=== PATIENT | male | born 1955 | race Caucasian/White ===

== ENCOUNTER → 2022-05-26 14:30 | Outpatient (CLI) | payer MEDICARE, OTHER, SELFPAY ==
[2022-05-26 17:59] LABS: Influenza A - CEPHEID Flu A NEGATIVE (NEGATIVE); Influenza B - CEPHEID Flu B NEGATIVE (NEGATIVE); Respiratory Syncytial Virus Negative (Negative)
[2022-05-26 18:02] LABS: COVID-19 CEPHEID 4-PLEX PCR Negative (Negative)
== END ==
PROVIDERS: Visit Provider Registered Nurse
DX: R05.1 Acute cough (principal); Z20.822 Contact with and (suspected) exposure to COVID-19
CPT/HCPCS: 0241U

== ENCOUNTER → 2023-06-07 14:48 | Outpatient (CLI) | payer MEDICARE, SELFPAY ==
[2023-06-07 20:27] LABS: Influenza A - CEPHEID Flu A NEGATIVE (NEGATIVE); Influenza B - CEPHEID Flu B NEGATIVE (NEGATIVE); Respiratory Syncytial Virus Negative (Negative)
[2023-06-07 20:28] LABS: Creatinine Urine Random 100.4 mg/dL
[2023-06-07 20:36] LABS: Microalbumin Urine Random < 0.6 mg/dL (0-1.6)
[2023-06-07 21:06] LABS: COVID-19 CEPHEID 4-PLEX PCR Negative (Negative)
== END ==
PROVIDERS: PCP Physician Assistant; Visit Provider Physician Assistant
DX: R05.9 Cough, unspecified (principal); E11.9 Type 2 diabetes mellitus without complications
CPT/HCPCS: 0241U; 82043; 82570